=== PATIENT | female | born 1965 | race Caucasian/White ===

== ENCOUNTER 2024-11-02 04:36 | Emergency (ER) | payer BC, SELFPAY ==
[2024-11-02 04:40] VITALS: BP 146/96
[2024-11-02 05:55] VITALS: BMI 23.0
--- NOTE | 2024-11-02 05:59 | EDRN ---
Pt woke 0345 with L leg cramp. Pt went to get out of bed and got 'fuzzy like my blood pressure dropped.' Pt's helped her to the bathroom. Pt sat on the toilet then passed out and hit her head, most likely floor. No BM, pt had to urinate.
Pt did not remember falling. Pt adds this has happened to her since her 30's. says pt did not have a LOC, at her side within 10 seconds of pt falling onto floor. He picked pt up off floor and noted pt was 'ice cold and clammy.'
Pt struck forehead. Pt says she feels fine now, is hungry. No headache, n/v.
[2024-11-02 06:05] VITALS: BP 157/96
--- NOTE | 2024-11-02 06:12 | ED.GENMED ---
History of Present Illness
<Kiel Chen MD, Resident - Last Filed: 11/03/24 00:55>
General
Chief Complaint: Fainting Sensation
Source: patient
Exam Limitations: none
Time Seen by Provider: 11/02/24 06:06
Nursing documentation reviewed up to this point in time: agreed with
History of Present Illness
History of Present Illness:
This is a 59-year-old female with history of hypothyroidism and glaucoma presenting in the emergency department with complaints of lightheadedness. She reports that she was sleeping, around 345 she woke up to go to the bathroom and noticed left leg
cramp which resolved after few minutes however when she stood up to go to the bathroom she felt lightheaded but decided to proceed to the bathroom with her . Her came out of the bathroom when he heard a noise and upon going back he
saw her on the bathroom floor, helped her to stand up. She could not recall the episode however due to fall she hit her head on the floor. Denies any headache, weakness or any numbness or tingling. also informed me that her skin was cold.
Denies any loss of consciousness. Denies any chest pain, denies any trouble breathing, denies any recent illness or sick contacts. Had 1 similar episode many years ago.
If applicable-neuro sx onset
Onset of symptoms known: Yes
Date of onset of symptoms: 11/02/24
Time of onset of symptoms: 03:45
Past History
<Kiel Chen MD, Resident - Last Filed: 11/03/24 00:55>
Past History
ED Past Medical History: Cancer (Breast), Hypothyroidism and Other (glaucoma)
ED Past Surgical History: Other (mastectomy)
Patient has exhibited threatening behavior?: No
PSI?: No
Social History
Tobacco: Non-smoker
Alcohol: Occasional
Drug: None
Personal:
Living: with family
Family History
Family History: Other (Noncontributory)
Review of Systems
<Kiel Chen MD, Resident - Last Filed: 11/03/24 00:55>
Review of Systems
Allergies reviewed?: Yes
Constitutional: Denies fever or chills
Respiratory: Denies cough
Cardiac: Denies chest pain
ABD/GI: Denies abdominal pain, nausea or vomiting
: Denies dysuria
Musculoskeletal: Denies joint pain
Neurological: Reports other (Lightheaded); Denies headache, weakness or numbness
Phy Exam
<Kiel Chen MD, Resident - Last Filed: 11/03/24 00:55>
General Physical Exam
General Presentation: well appearing and no apparent distress
General age: appears stated age
General Skin: warm
General Habitus: normal
General Mental: alert
General Hydration: appears well hydrated
Cardiovascular Exam
Cardiovascular Exam: regular rate/rhythm and no murmur
Pulmonary Exam
Pulmonary Exam: lungs clear, no respiratory distress and no cough
Gastrointestinal Exam
Gastrointestinal Exam: normal bowel sounds, non tender, soft and non distended
Neurological Exam
Neurological Exam: alert, oriented x3, CN II-XII intact, no motor deficits and no sensory deficits
Musculoskeletal Exam
Musculoskeletal Exam: full ROM
Course
<Kiel Chen MD, Resident - Last Filed: 11/03/24 00:55>
Orders/Labs/Results
Orders:
Orders
11/02/24 04:45
EKG [Electrocardiogram (*1)] Urgent
Reason for Study: Syncope
11/02/24 04:46
EKG- Treatment ONCE
11/02/24 04:57
CT Head W/o Iv Contrast Urgent
Comment:
Reason For Exam: syncopized, abrasion to r frontal area.
11/02/24 06:24
Complete Blood Count/With Diff Urgent
Comprehensive Metabolic Panel Urgent
Troponin I Urgent
11/02/24 06:38
Orthostatic VS- Treatment ONCE
Abnormal Lab Results
11/02/24
06:24
MCH 31.4 H pg
(27.0-31.0)
MPV 10.6 H fL
(7.4-10.4)
Lymphocytes % 19.9 L %
(20.5-51.1)
Chloride 108 H mmol/L
(98-107)
BUN 19 H mg/dl
(7-17)
Glucose 107 H mg/dl
(70-99)
11/02/24 06:24
11/02/24 06:24
Vital Signs
Initial and Last Documented VS:
Initial Vital Signs
Resp
14
11/02/24 04:39
Last Documented Vital Signs
Temp Pulse Resp BP Pulse Ox
97.7 F 67 14 141/75 98
11/02/24 04:40 11/02/24 08:00 11/02/24 06:05 11/02/24 08:00 11/02/24 07:45
<Celeste Dumas, DO - Last Filed: 11/02/24 07:52>
Orders/Labs/Results
Orders:
Orders
11/02/24 04:45
EKG [Electrocardiogram (*1)] Urgent
Reason for Study: Syncope
11/02/24 04:46
EKG- Treatment ONCE
11/02/24 04:57
CT Head W/o Iv Contrast Urgent
Comment:
Reason For Exam: syncopized, abrasion to r frontal area.
11/02/24 06:24
Complete Blood Count/With Diff Urgent
Comprehensive Metabolic Panel Urgent
Troponin I Urgent
11/02/24 06:38
Orthostatic VS- Treatment ONCE
Abnormal Lab Results
11/02/24
06:24
MCH 31.4 H pg
(27.0-31.0)
MPV 10.6 H fL
(7.4-10.4)
Lymphocytes % 19.9 L %
(20.5-51.1)
Chloride 108 H mmol/L
(98-107)
BUN 19 H mg/dl
(7-17)
Glucose 107 H mg/dl
(70-99)
11/02/24 06:24
11/02/24 06:24
Vital Signs
Initial and Last Documented VS:
Initial Vital Signs
Resp
14
11/02/24 04:39
Last Documented Vital Signs
Temp Pulse Resp BP Pulse Ox
97.7 F 67 14 141/75 98
11/02/24 04:40 11/02/24 08:00 11/02/24 06:05 11/02/24 08:00 11/02/24 07:45
<Kiel Chen MD, Resident - Last Filed: 11/03/24 00:55>
MDM/Problems Addressed
Differential Diagnosis Includes:
Orthostatic/dehydration vs hypoglycemia vs cardiac vs unlikely cva
MDM/Problems Addressed:
Patient offers no acute complaints at this time
EKG with normal sinus rhythm
Will check CT head
Update: No hemorrhage hydrocephalus or mass effect on CT.
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
Will get CBC, CMP and troponin
Check orthostatics
update: Patient continues to feel [place]. Vital stable
Orthostatics negative
CBC within normal limits CMP with borderline elevation of BUN to 19, blood glucose of 107.
Troponin pending
Shared decision was made with the patient for discharge home. No indication for any additional workup at this time. Patient remained stable. Return precautions reviewed. Patient voices understanding and agree with the plan.
<Kiel Chen MD, Resident - Last Filed: 11/03/24 00:55>
*Pulse Oximetry
SaO2: 99
Oxygen Mode of Delivery: Room air
Patient hypoxic: no
*Critical Care Note
Total Time (30-74mins, 75-104mins- exclusive of procedures): Not Applicable
<Celeste Dumas DO - Last Filed: 11/02/24 07:52>
*EKG
Interpretation: normal
Heart Rate: 66
Rate: normal
Rhythm: sinus
[place]: normal axis
Interval: normal interval
QRS Pattern: normal QRS
Ischemia: no ischemia
ED Attending Note
<Kiel Chen MD, Resident - Last Filed: 11/03/24 00:55>
-
Portions of this chart may have been created with voice recognition software.� Occasional wrong word or��sound alike� substitutions may have occurred due to the inherent limitations of voice recognition software.
<Celeste Dumas DO - Last Filed: 11/02/24 07:52>
ED Attending Note
Patient seen and examined by attending physician: Yes
I performed the substantive portion of visit, reviewed & personally made and approve the management plan that is documented in note by myself or CARMEL.: Yes
I performed a history and physical exam of patient and discussed management with resident, I reviewed resident's note and agree with documented findings and plan of care.: Yes
ED Attending Note:
59-year-old female presenting after near syncopal episode. Patient reports that she woke up suddenly in the compliance reviewer with a lower extremity leg cramp. She got up to walk around and then went to the bathroom. She suddenly felt lightheaded.
Her helped her into the bathroom, and patient fell, struck her head without loss of consciousness. Does note she has had similar symptoms in the past, thought to be secondary to a drop in blood pressure. She feels this episode was worse
than typical. Denies prodromal chest pain or difficulty breathing. Denies any recent fever. Denies weakness or numbness to her extremities. She is not on any blood thinners. Vital signs are normal.
On exam, patient is resting comfortably, no acute distress or discomfort. No physical signs of trauma. Unremarkable cardiac and pulmonary exam. No focal neurologic deficits. Patient afebrile, nontoxic. Ultimately suspect vasovagal syncopal
episode. EKG obtained on arrival, nonischemic, no arrhythmia. Screening laboratory analysis without any electrolyte derangements, normal blood counts. Orthostatics obtained, within normal limits. Patient reports that she is currently
asymptomatic, feeling much better. Ultimately feel stable for discharge with outpatient interval follow-up, oral hydration and rest. Return precautions discussed to patient and at bedside who verbalized understanding
Discharge Plan
Departure
Patient Disposition: Home (Routine Discharge)
Date of Disposition: 11/02/24
Time of Disposition: 07:54
Patient with high blood pressure during this ER visit?: Yes
Condition: Good
Discharge Problem:
Episodic lightheadedness
Instructions: Syncope (Fainting) (DC), Near Fainting (DC), BLOOD PRESSURE
Prescriptions:
No Action
travoprost [Travatan Z] 0.004 % Drops
1 drp BOTH EYES HS
levothyroxine 88 mcg Tablet
88 mcg PO DAILY
dorzolamide-timolol [Cosopt] 22.3-6.8 mg/mL Drops
1 drp BOTH EYES BID
vitamin B complex [B Complex] Capsule
1 cap PO DAILY
Hp Digestive Enzyme
1 tab PO DAILY
Referrals:
Shawanda Burrell MD [Family Provider, Internal Medicine]
Activity Restrictions/Additional Instructions:
You were seen in the [facility] emergency department with concerns of lightheadedness. While you were in the ER we performed EKG which showed normal sinus rhythm, head CT which did not show any acute intracranial abnormality. Blood work
including complete blood count which was unremarkable complete metabolic panel which showed slight elevation of BUN likely due to dehydration. We also checked orthostatic blood pressure which was negative. Your vitals remained stable. Please
follow-up with outpatient PCP. Please return to the emergency department if you develop any worsening of current or worrisome symptoms.
Interventions
Interventions:
*Risk Screen - Suicide Last Done: 11/02/24 04:39
*General Assessment Last Done: 11/02/24 05:56
*Neglect/Abuse Screening Last Done: 11/02/24 05:44
*ED- Fall Risk Assessment Last Done: 11/02/24 05:56
*Nursing Disposition Last Done: 11/02/24 08:15
ED- Cardiac Assessment Last Done: 11/02/24 07:27
ED- Neurological Assessment Last Done: 11/02/24 07:27
Discharge Date and Time
Discharge Date/Time: 11/02/24 08:16
Print Language: LATVIAN
[2024-11-02 06:46] LABS: Hematocrit 40.9 % (37.0-47.0); Hemoglobin 13.8 g/dL (12.0-16.0); Mean Corp Hgb Conc. 33.7 g/dL (33.0-37.0); Mean Corpuscular Volume 93.0 fL (81.0-99.0); Nucleated Red Blood Cells % 0 %; Platelet Count 216 10^3/uL (130-400); Red Cell Dist. Width 12.2 % (11.5-14.5)
[2024-11-02 06:59] VITALS: BP 144/79; BP 149/82; BP 156/97; PULSE 63; PULSE 66; PULSE 71
[2024-11-02 07:01] VITALS: BP 142/85
[2024-11-02 07:01] LABS: ALT (SGPT) 20 U/L (0-35); AST (SGOT) 21 U/L (14-36); Albumin 4.6 g/dl (3.5-5.0); Alkaline Phosphatase 49 U/L (38-126); Blood Urea Nitrogen 19 mg/dl (7-17); Calcium 9.9 mg/dl (8.4-10.2); Carbon Dioxide 25 mmol/L (22-30); Chloride 108 mmol/L (98-107); Estimated Creatinine Clearance 85 ml/min; Glucose 107 mg/dl (70-99); Potassium 4.0 mmol/L (3.5-5.1); Sodium 139 mmol/L (135-145); Total Protein 7.6 g/dl (6.3-8.2); eGFR > 60.00
[2024-11-02 07:53] LABS: Troponin I < 0.012 ng/ml
[2024-11-02 08:00] VITALS: BP 141/75
== END 2024-11-02 08:16 | disposition home or self-care (01) ==
LOC: EMR 04:36
PROVIDERS: EMERGENCY PHYSICIAN Student in an Organized Health Care Education/Training Program; FAMILY PHYSICIAN Internal Medicine
DX: R42 Dizziness and giddiness (principal); S00.81XA Abrasion of other part of head, initial encounter; W18.39XA Other fall on same level, initial encounter; Y92.002 Bathroom of unspecified non-institutional (private) residence as the place of occurrence of the external cause; R03.0 Elevated blood-pressure reading, without diagnosis of hypertension; E03.9 Hypothyroidism, unspecified; H40.9 Unspecified glaucoma; E78.5 Hyperlipidemia, unspecified; Z85.3 Personal history of malignant neoplasm of breast; Z90.11 Acquired absence of right breast and nipple
CPT/HCPCS: 99284; 70450; 80053; 84484; 85025; 93005